=== PATIENT | male | born 1975 | race Caucasian/White ===

== ENCOUNTER 2017-08-04 16:54 | Emergency (ER) | payer OTHER, SELFPAY ==
[2017-08-04 16:56] VITALS: BP 150/99; PULSE 119; RESP 18; TEMP 36.7; O2SAT 100; BMI 29.9
--- NOTE | 2017-08-04 17:02 | EKG12_ITS ---
Test Reason : Blood Pressure : / mmHG Vent. Rate : 111 BPM Atrial Rate : 111 BPM P-R Int : 154 ms QRS Dur : 106 ms QT Int : 342 ms P-R-T Axes : 061 061 047 degrees QTc Int : 465 ms Sinus tachycardia Otherwise normal ECG Confirmed by SHON MCDANIELS ([id number]), editor sound JANAE ROSENTHAL ([id number]) on 08/08/2017 1:51:50 PM Referred By: Confirmed By:SHON MCDANIELS
[2017-08-04 17:38] VITALS: BP 152/89; PULSE 64; RESP 16; O2SAT 100
[2017-08-04 17:53] LABS: Absolute Lymphocyte Count 1.63 X10^3/ul (0.83-4.51); Basophil# 0.02 X10^3/uL; Basophil% 0.3 % (0-1); Eosinophil# 0.02 X10^3/uL; Eosinophils% 0.3 % (0-5); Hematocrit 45.3 % (40-54); Lymphocyte # 1.63 X10^3/ul (4.0); Lymphocyte % 23.2 % (19-41); Mean Corp Hgb Conc 35.3 g/gl (32-36); Mean Corpuscular Hgb 29.2 pg (27.0-32.0); Mean Corpuscular Volume 82.7 fL (80-94); Mean Platelet Vol. 10.2 fl (6.2-12.0); Monocyte# 0.42 X10^3/uL; Neutrophil # 4.95 X10^3/uL (2.7-7.7); Neutrophil % 70.2 % (47-70); POSITIVE COUNT NO; POSITIVE DIFFERENTIAL NO; POSITIVE MORPHOLOGY NO; Platelet Count 230 K/mm3 (150-450); RBC Distribution Width CV 12.8 % (11.6-14.6); RBC Distribution Width SD 38.3 fl (35.1-43.9); Red Blood Count 5.48 M/mm3 (4.6-6.2)
[2017-08-04 18:20] LABS: Anion Gap 6 (5-15); BUN 11 mg/dL (7-18); BUN/Creat Ratio 10.4 RATIO (10-20); Calcium,Total 9.3 mg/dL (8.5-10.1); Chloride 108 mmol/L (98-107); Creatinine, Serum 1.06 mg/dL (0.70-1.30); EST Glomerular Filtration Rate 81 mL/min (>60); Est Glom Filt Rate - Afr Amer 98 mL/min (>60); Glucose 109 mg/dL (74-106); Potassium 3.6 mmol/L (3.5-5.1); Sodium Level 141 mmol/L (136-145)
--- NOTE | 2017-08-04 18:30 | ED.VISSUMM ---
- ER Visit Summary Date of Service: 08/04/17 Chief Complaint: Anxiety History of Present Illness: The patient is a 41 M with anxiety. He has history of panic episodes. He takes Klonopin 0.5 mg, but he breaks into 4 pieces and takes a small amount at a time. He took less than 1 mg today. He has also done the same with Benadryl tablets today. They do not help. His symptoms are associated with some palpitations, heart racing, near syncope, and nausea. He denies any heart history, respiratory disease, PE, or any other serious medical issues. Physical Examination: Vital signs unremarkable. He had some tachycardia on arrival. But this resolved. Heart regular. Lungs clear. Abdomen soft. No focal or lateralizing neurologic findings. No suicidal thoughts. Test Results: EKG, troponin, labs, TSH unremarkable. Emergency Department Course and Treatment: Patient declined any medical therapy. He said that as pains make his symptoms worse. He also said hydroxyzine makes his symptoms worse. He will likely benefit from long-term SSRI treatment. He should also speak with a counselor. I will refer him to a counselor. He should also follow-up with his PCP for outpatient medical management. Return for any new or worsening symptoms. Treatment Plan: As above Disposition: Discharged Impression: 1. Anxiety 2. Palpitations This note was generated with [facility] dictation software. It may contain incorrect words, spelling, and punctuation that were not noted in review of the chart prior to signing ED Disposition - Plan for ED Patient: Chief Complaint: Chest Pain Referrals: Reginald Zimmerman III, MD [Primary Care Provider] -
--- NOTE | 2017-08-04 18:33 | ED.DEP ---
ED Disposition - Plan for ED Patient: Chief Complaint: Chest Pain Instructions: Understanding Anxiety Disorders Referrals: Reginald Zimmerman III, MD [Primary Care Provider] - [facility] [GROUP OF PHYSICIANS] -
--- NOTE | 2017-08-04 18:35 | DCINST.ED_ITS ---
ED Disposition - Plan for ED Patient: Chief Complaint: Chest Pain Instructions: Understanding Anxiety Disorders Referrals: Reginald Zimmerman III, MD [Primary Care Provider] - [facility] [GROUP OF PHYSICIANS] -
[2017-08-04 18:49] VITALS: BP 132/87; PULSE 98; RESP 16; O2SAT 100
== END 2017-08-04 18:50 | disposition home or self-care (01) ==
LOC: ED 17:38
PROVIDERS: Emergency Provider Emergency Medicine; Family Provider Family Medicine; PCP Family Medicine
DX: F41.9 Anxiety disorder, unspecified (principal); R00.2 Palpitations; Z79.899 Other long term (current) drug therapy
CPT/HCPCS: 80048; 84443; 84484; 85025; 93005; 99283; A4216

== ENCOUNTER 2017-10-20 10:23 | Emergency (ER) | payer OTHER, SELFPAY ==
[2017-10-20 10:25] VITALS: BP 122/92; PULSE 114; RESP 20; TEMP 35.5; O2SAT 100; BMI 30.5
--- NOTE | 2017-10-20 10:38 | EKG12_ITS ---
Test Reason : PALPITATIONS Blood Pressure : / mmHG Vent. Rate : 087 BPM Atrial Rate : 087 BPM P-R Int : 156 ms QRS Dur : 112 ms QT Int : 362 ms P-R-T Axes : 052 047 036 degrees QTc Int : 435 ms Normal sinus rhythm with sinus arrhythmia Normal ECG Confirmed by TIFFANY PIMENTEL, JENNY ([id number]), editorial director JANAE ROSENTHAL ([id number]) on 10/26/2017 1:33:54 PM Referred By: RU Confirmed By:JENNY ALLEN MD
[2017-10-20 11:01] LABS: Absolute Lymphocyte Count 1.42 X10^3/ul (0.83-4.51); Absolute Neutrophil Count 2.7 X10^3/uL (2.0-7.7); Basophil# 0.03 X10^3/uL; Basophil% 0.7 % (0-1); Eosinophil# 0.06 X10^3/uL; Eosinophils% 1.3 % (0-5); Hematocrit 44.9 % (40-54); Hemoglobin 15.6 g/dl (13.0-16.5); Lymphocyte # 1.42 X10^3/ul (4.0); Lymphocyte % 31.1 % (19-41); Mean Corp Hgb Conc 34.7 g/gl (32-36); Mean Corpuscular Hgb 28.7 pg (27.0-32.0); Mean Corpuscular Volume 82.5 fL (80-94); Mean Platelet Vol. 9.9 fl (6.2-12.0); Monocyte# 0.33 X10^3/uL; Monocyte% 7.2 % (0-10); Neutrophil # 2.73 X10^3/uL (2.7-7.7); Neutrophil % 59.7 % (47-70); Platelet Count 200 K/mm3 (150-450); RBC Distribution Width CV 13.1 % (11.6-14.6); RBC Distribution Width SD 39.3 fl (35.1-43.9); Red Blood Count 5.44 M/mm3 (4.6-6.2); White Blood Count 4.6 K/mm3 (4.4-11.0)
[2017-10-20 11:03] LABS: POSITIVE COUNT NO; POSITIVE DIFFERENTIAL NO; POSITIVE MORPHOLOGY NO
[2017-10-20 11:19] LABS: Anion Gap 5 (5-15); BUN 12 mg/dL (7-18); BUN/Creat Ratio 10.2 RATIO (10-20); Calcium,Total 9.3 mg/dL (8.5-10.1); Chloride 103 mmol/L (98-107); Creatinine, Serum 1.18 mg/dL (0.70-1.30); EST Glomerular Filtration Rate 71 mL/min (>60); Est Glom Filt Rate - Afr Amer 86 mL/min (>60); Estimated Creatinine Clearance 96.47 ml/min; Glucose 112 mg/dL (74-106); Potassium 3.9 mmol/L (3.5-5.1); Sodium Level 136 mmol/L (136-145)
--- NOTE | 2017-10-20 11:40 | ED.DCSUM_ITS ---
- ER Visit Summary Date of Service: 10/20/17 Chief Complaint: [Cardia] History of Present Illness: The patient is a 41 M [presents the emergency department with racing heart that started today while on the job site. 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 Patient states he has had this happen multiple times in the past. Patient does have a history of anxiety and panic attacks. Patient supposed to be on a medicine that he supposed to take 3 times a day but has not been taken it. Patient states that he lost a friend in March and it is felt that he has been varying his feelings about it. Patient currently denies any chest pain. Patient very aware of every heartbeat and feels like at times his heart will actually pause. Patient also was concerned that maybe he was dehydrated. Patient denies any chest pain currently.] Physical Examination: [HEENT-PERRLA, EOMI. Cranial nerves II through XII grossly intact. TMs clear. Mucous membranes moist. No adenopathy. Cardiovascular-regular rate and rhythm without murmur or ectopy Lungs-clear to auscultation, chest wall stable without crepitus or subcu emphysema Abdomen-normoactive bowel sounds, soft, nontender, no rebound or rigidity, no peritoneal signs. Extremities-intact ?4, normal range of motion, normal pulses, atraumatic] Test Results: [EKG obtained on arrival showed sinus rhythm with a ventricular rate of 87 bpm with occasional PACs. CBC with differential was normal. Chemistries were normal troponin was normal.] Emergency Department Course and Treatment: [Patient received normal saline while in the emergency department. I was called the patient's room again and patient is asking to be discharged home and states that he knows what happened and he believes that it was his anxiety that was the cause of his symptoms. I am in agreement with this as I have seen patient multiple times in the past for severe anxiety.] Treatment Plan: [Patient to follow-up with primary care physician within next 3- 5 days.] Disposition: [Discharged home in stable condition] Impression: [Anxiety Tachycardia by history] This note was generated with [employer] software. It may contain incorrect words, spelling, and punctuation that were not noted in review of the chart prior to signing ED Disposition - Plan for ED Patient: Chief Complaint: Palpitations Referrals: Reginald Zimmerman III, MD [Primary Care Provider] -
--- NOTE | 2017-10-20 11:41 | ED.DEP ---
ED Disposition - Plan for ED Patient: Chief Complaint: Palpitations Instructions: ED Palpitations, ED Stress React Referrals: Reginald Zimmerman III, MD [Primary Care Provider] - 3-5 Days
[2017-10-20 11:48] VITALS: BP 118/85; BP 122/70; PULSE 90; RESP 14; O2SAT 99
--- NOTE | 2017-10-20 11:53 | NURSING ---
PATIENT REFUSED IV FLUIDS AND ANY FURTHER TREATMENT, MD AWARE.
--- NOTE | 2017-10-20 14:06 | CHAPLAIN ---
Type of Pastoral Visit ___ Initial Visit ___ Follow-up Visit ___ On-call Visit ___ General Patient Visit ___ Spiritual Assessment ___ Family Conference ___ Bereavement ___ Rapid Response ___ Code Blue _x__ Other (describe below) Pastoral Care Referral From _x__ Patient ___ Family ___ Nurse ___ Physician ___ Aerial Photogrammetrist ___ Director Of Coding ___ Other (describe below) Sacrament/Intervention _x__ Active listening ___ Anointing ___ Nondenominational ___ Bereavement ___ Communion ___ Kimberli exploration ___ ___ Life review _x__ Prayer ___ Reconciliation ___ Sacrament of Sick _x__ Supportive presence ___ Wedding ___ Other (describe below) Pastoral Comments ED - patient is pacing in his room; stopped to talk and offer support; pt spoke of his anxiety and welcomed the presence and prayer offered
== END 2017-10-20 11:54 | disposition home or self-care (01) ==
LOC: ED 11:31
PROVIDERS: Emergency Provider Emergency Medicine; Family Provider Family Medicine; PCP Family Medicine
DX: F41.9 Anxiety disorder, unspecified (principal); R00.0 Tachycardia, unspecified; Z91.14 Patient's other noncompliance with medication regimen
CPT/HCPCS: 80048; 84484; 85025; 93005; 99284; J7030; A4216

== ENCOUNTER 2017-11-04 15:05 | Emergency (ER) | payer OTHER, SELFPAY ==
--- NOTE | 2017-11-04 14:14 | EKG12_ITS ---
Test Reason : CP PALPS Blood Pressure : / mmHG Vent. Rate : 102 BPM Atrial Rate : 102 BPM P-R Int : 144 ms QRS Dur : 104 ms QT Int : 330 ms P-R-T Axes : 061 068 048 degrees QTc Int : 430 ms Sinus tachycardia Otherwise normal ECG Confirmed by ALONDRA PIMENTEL, KRUPA ([id number]), newspaper editor managing JANAE ROSENTHAL ([id number]) on 11/09/2017 5:54:58 PM Referred By: LUPE/JUAN Confirmed By:KRUPA CANTU MD
--- NOTE | 2017-11-04 15:05 | DT_ITS ---
This patient was seen during an EMR downtime October 31, 2017 - November 07, 2017. This patient may have a combination of paper and electronic documentation or all paper documentation. All documentation is viewable within the e-chart portion of [employer] for each patient visit.
[2017-11-09 13:46] LABS: BUN 12 mg/dL (7-18); BUN/Creat Ratio 11.4 RATIO (10-20); Creatinine, Serum 1.05 mg/dL (0.70-1.30); EST Glomerular Filtration Rate 82 mL/min (>60); Est Glom Filt Rate - Afr Amer 99 mL/min (>60); Glucose 104 mg/dL (74-106)
[2017-11-09 13:47] LABS: ALB/GLOB Ratio 1.3 RATIO (0.9-2.4); AST(SGOT) 20 U/L (15-37); Alanine Aminotransfer ALT/SGPT 41 U/L (16-61); Albumin, Serum 4.2 g/dL (3.2-5.0); Alkaline Phosphatase 60 U/L (45-117); Anion Gap 8 (5-15); Calcium,Total 9.2 mg/dL (8.5-10.1); Chloride 105 mmol/L (98-107); Globulin 3.3 g/dL (2.2-4.2); Magnesium 2.1 mg/dL (1.6-2.6); Potassium 3.7 mmol/L (3.5-5.1); Protein, Total 7.5 g/dL (6.4-8.2); Sodium Level 141 mmol/L (136-145); Thyroid Stim Hormone (TSH) 0.66 uIU/mL (0.358-3.74)
[2017-11-09 13:48] LABS: Partial Thromboplast Time 28.2 Seconds (24.1-36.2); Prothrombin Time (Protime)PT. 13.6 SECONDS (11.7-14.9)
[2017-11-09 13:50] LABS: Absolute Neutrophil Count 4.2 X10^3/uL (2.0-7.7); Basophil% 0.4 % (0-1); Eosinophils% 0.4 % (0-5); Hematocrit 45.5 % (40-54); Hemoglobin 15.9 g/dl (13.0-16.5); Lymphocyte # 1.16 X10^3/ul (4.0); Lymphocyte % 20.7 % (19-41); Mean Corp Hgb Conc 34.9 g/gl (32-36); Mean Corpuscular Hgb 28.9 pg (27.0-32.0); Mean Corpuscular Volume 82.6 fL (80-94); Mean Platelet Vol. 10.3 fl (6.2-12.0); Monocyte% 4.1 % (0-10); Neutrophil # 4.18 X10^3/uL (2.7-7.7); Neutrophil % 74.4 % (47-70); POSITIVE COUNT NO; POSITIVE DIFFERENTIAL NO; POSITIVE MORPHOLOGY NO; Platelet Count 224 K/mm3 (150-450); RBC Distribution Width CV 12.9 % (11.6-14.6); RBC Distribution Width SD 39.1 fl (35.1-43.9); Red Blood Count 5.51 M/mm3 (4.6-6.2); White Blood Count 5.6 K/mm3 (4.4-11.0)
[2017-11-09 13:51] LABS: Absolute Lymphocyte Count 1.16 X10^3/ul (0.83-4.51); Basophil# 0.02 X10^3/uL; Eosinophil# 0.02 X10^3/uL; Monocyte# 0.23 X10^3/uL
--- NOTE | 2017-11-25 08:29 | ED.DCSUM_ITS ---
- ER Visit Summary Date of Service: 11/04/17 Chief Complaint: Chest pain History of Present Illness: The patient is a 41 M who states that he got a phone call stating that he was having PVCs and needed to go to the emergency department. He has been wearing a Holter monitor. States she has never had a heart catheterization but he has had echocardiograms and stress testing. He notes he has been having chest pain dyspnea on exertion for years. He has been seeing Dr. Gracia. He states that he has gained about 15-20 pounds in the last 6 months. States he was told his cholesterol is high but has not been treated for it. He has not had any marijuana for 3 months he quit smoking. I did speak with Dr. Gracia about his care. Dr. Gracia informed me he had an episode of nonsustained ventricular tachycardia on his Holter monitor. Physical Examination: Afebrile vital signs are stable Gen: Well-nourished well-developed Head: Normocephalic atraumatic Eyes: Perrl EOMI ENT: TMs clear no rhinorrhea moist mucous membranes Neck: Supple no lymphadenopathy no JVD nontender CVS: Regular rate rhythm no murmurs normal S1-S2 Respiratory: No distress clear to auscultation bilaterally chest nontender Abdomen: Soft nontender nondistended normal bowel sounds no masses Back: Nontender Extremity: Nontender no edema Skin: Normal color no rash Neuro: alert orientated ?3 CN II-XII intact normal strength sensation reflexes gait cerebellar Psych: Anxious Test Results: EKG sinus rhythm at a rate of 102. Chest x-ray negative. CBC chemistries negative. Troponin less than 0.015. TSH 0.657. Emergency Department Course and Treatment: I spoke with Dr. Hill will follow up with the patient as an outpatient. Impression: 1. Chest pain 2. Nonsustained ventricular tachycardia This note was generated with [employer] dictation software. It may contain incorrect words, spelling, and punctuation that were not noted in review of the chart prior to signing ED Disposition - Plan for ED Patient: Disposition: Home or Assisted Living Referrals: Reginald Zimmerman III, MD [Primary Care Provider] -
== END 2017-11-04 18:30 | disposition home or self-care (01) ==
PROVIDERS: Emergency Provider Emergency Medicine; Family Provider Family Medicine; PCP Family Medicine
DX: R07.9 Chest pain, unspecified (principal); I47.2 Ventricular tachycardia; Z87.891 Personal history of nicotine dependence
CPT/HCPCS: 71045; 80053; 83735; 84443; 84484; 85025; 85610; 85730; 93005; 99284

== ENCOUNTER → 2017-11-08 11:58 | Outpatient (CLI) | payer OTHER, SELFPAY ==
--- NOTE | 2017-11-08 12:02 | RAD_ITS ---
STUDY: X-RAY CHEST REASON FOR EXAM: Male, 41 years old. ongoing chest pain having heart cath 11-11-17 TECHNIQUE: PA and lateral views of the chest. COMPARISON: November 14, 2017 FINDINGS: The lungs are clear and again hyperexpanded. There is no demonstrated pleural abnormality. Normal size heart. Normal mediastinum and marvel. Normal visualized pulmonary arteries. Normal visualized aortic arch and descending thoracic aorta. Normal visualized thoracic spine. Normal visualized ribs, clavicles, and shoulders. There is no demonstrated abnormality of the visualized soft tissue structures of the upper abdomen. RAD/Chest PA and Lateral IMPRESSION: No acute disease is demonstrated. Electronically Signed: Yas Wilkins MD at 13:06 EDT , Service support ,
== END ==
LOC: RAD 12:00
PROVIDERS: Family Provider Family Medicine; PCP Family Medicine; Visit Provider Internal Medicine Cardiovascular Disease
DX: Z01.810 Encounter for preprocedural cardiovascular examination (principal); R07.9 Chest pain, unspecified
CPT/HCPCS: 71046

== ENCOUNTER → 2017-11-11 06:54 | Day surgery (SDC) | payer OTHER, SELFPAY ==
[2017-11-10 08:29] VITALS: BMI 30.9
--- NOTE | 2017-11-11 09:41 | CL.D_ITS ---
Patient Name: JANI ABDALLA Study Date: 11/11/2017 Performing: Saman Hill MD Ht: 74.01 inches 188 cm : 1975 Wt: 240.3 lbs 109 kg Age: 41 Gender: male BSA: 2.35 PROCEDURE(S) PERFORMED FG10-RLY/COR/LV CLINICAL PROFILE AND INDICATIONS Indications: Suspected CAD Heart Failure: None Stress/Imaging Stress/Image Study Performed: No CAD Presentations: Symptom unlikely to be ischemic. CONCLUSIONS Normal coronary arteries Normal LV size, wall motion,and systolic function RECOMMENDATIONS Medical therapy DESCRIPTION OF PROCEDURE The patient arrived to the procedure lab. The risks and benefits of the procedure as well as a full d escription of our services here and current unavailability of surgical backup were fully explained to the patient and/or their significant other prior to the catheterization. The Timeout was completed, verifying the correct patient and procedure. The patient's procedural site was prepped and draped in the usual fashion. Local anesthetic was given subcutaneously to right radial region with Lidocaine 2% . Using a modified Seldinger technique, arterial access was obtained via the right radial artery, a 6 Fr sheath was inserted. Right Coronary Artery selective angiography was then performed in multiple v iews using a 5 Fr. 4.0 Fairdealing catheter. Left Coronary Artery selective angiography was performed in mu ltiple views using a 5 Fr. 4.0 Fairdealing catheter. Left Coronary Artery selective angiography was perform ed in multiple views using a 5 Fr. JL3.5 catheter. Left Ventriculography was performed in JIMENEZ project ion using a 5 Fr. Pigtail catheter. LV to AO pullback pressures were then recorded.The arterial sheat h was pulled and a TR Band was applied for hemostasis CORONARY ANGIOGRAPHY DOMINANCE: Right Dominant LEFT HEART ASSESSMENT Left Ventricular Ejection Fraction: by LV Gram 65 % Normal LV wall motion Normal Left Ventricular systolic function LEFT MAIN: Angiographically normal LEFT ANTERIOR DECENDING ARTERY: Angiographically normal CIRCUMFLEX ARTERY: Angiographically normal RIGHT CORONARY ARTERY: Angiographically normal COMPLICATIONS No Complications PROCEDURE MEDICATIONS Oxygen: 2 L/min via nasal cannula Benadryl 25mg IV @ 11/11/2017 08:08:21 Heparin diluted in 23cc Heparinized saline. Patient given 10cc IA of this solution. 11/11/2017 08:15: 12 Verapamil 2.5mg, Ntg 100mcgs, 2000 units of Heparin diluted in 23cc Heparinized saline. Patient give n 10cc IA of this solution. 11/11/2017 08:15:12 SUMMARY OF HEMODYNAMIC DATA Time AIR REST ECG 07:28:15 AO 120/86 (97) SA 08:16:37 LV 125/7, 14 08:29:27 LV 135/8, 16 08:29:33 LV 138/9, 21 08:31:06 LVp 129/7, 17 08:31:14 AOp 133/84 (105) 08:31:19 Signed By Saman Hill MD On 11/11/2017 08:38:47 Saman Hill MD
== END ==
PROVIDERS: Family Provider Family Medicine; PCP Family Medicine; Visit Provider Internal Medicine Cardiovascular Disease
DX: R07.9 Chest pain, unspecified (principal); R00.2 Palpitations; I10 Essential (primary) hypertension; E78.5 Hyperlipidemia, unspecified; F41.9 Anxiety disorder, unspecified; F32.9 Major depressive disorder, single episode, unspecified; E55.9 Vitamin D deficiency, unspecified; Z79.82 Long term (current) use of aspirin; Z79.891 Long term (current) use of opiate analgesic; Z79.899 Other long term (current) drug therapy; Z87.891 Personal history of nicotine dependence
CPT/HCPCS: 93458; J7040; Q9967; C1769; C1894; J2405

== ENCOUNTER → 2018-06-28 15:06 | Outpatient (CLI) | payer OTHER, SELFPAY ==
[2017-11-10 08:29] VITALS: BMI 30.9
--- NOTE | 2018-06-28 15:13 | RAD_ITS ---
STUDY: X-RAY - CERVICAL SPINE REASON FOR EXAM: Male, 42 years old. Pain. TECHNIQUE: 3 view(s) of the cervical spine were obtained. COMPARISON: None FINDINGS: Normal anterior atlantoaxial articulation. Normal odontoid process. Normal cervical lordosis. Normal vertebral bodies and endplates. Normal disc space heights. The soft tissue structures are unremarkable. There is no demonstrated fracture of the cervical spine. RAD/Cerv Spine 2 or 3 Views IMPRESSION: Normal x-ray examination of the visualized cervical spine. Electronically Signed: Wil Diaz MD at 0:00 EST , Service support ,
== END ==
LOC: RAD 15:10
PROVIDERS: Family Provider Family Medicine; PCP Family Medicine; Referring Provider Anesthesiology Pain Medicine; Visit Provider Anesthesiology Pain Medicine
DX: M54.2 Cervicalgia (principal)
CPT/HCPCS: 72040

== ENCOUNTER → 2018-07-03 12:18 | Outpatient (CLI) | payer OTHER, SELFPAY ==
--- NOTE | 2018-07-03 12:24 | RAD_ITS ---
HISTORY: ARTHARITIS IN BACK FOR 20 YEARS. BACK PAIN COMPARISON: 2 view chest 11/08/2017 FINDINGS: XR Spine Thoracic 3 Views: Thoracic vertebra show normal height and alignment. No fracture or suspicious bony lesion. T6-7 mild disc space narrowing accompanied by mild endplate spurring. T7-8 Minor disc space narrowing. The posterior elements appear intact. No spondylolisthesis. The paravertebral soft tissues are unremarkable. RAD/Thoracic Spine Min 4 Views IMPRESSION: 1. No fracture or acute disease. 2. Mild degenerative change. 3. Normal thoracic vertebral alignment. at 0033 Reported and signed by: Prosper Mehta MD Electronically Signed: Prosper Mehta, at 0:32 EST Tel , Service support ,
== END ==
LOC: RAD 12:22
PROVIDERS: Family Provider Family Medicine; PCP Family Medicine; Referring Provider Anesthesiology Pain Medicine; Visit Provider Anesthesiology Pain Medicine
DX: M54.6 Pain in thoracic spine (principal)
CPT/HCPCS: 72074

== ENCOUNTER → 2018-07-12 12:25 | Outpatient (CLI) | payer OTHER, SELFPAY ==
--- NOTE | 2018-07-12 12:36 | MRI_ITS ---
HISTORY: NECK AND ARM PAIN, BACK PAINno neck pain, chronic pain upper to mid thoracic into bilat shoulders, numbness left arm/hand EXAM/TECHNIQUE: MR Spine Cervical W/O Contrast: 1.5 Ellyn. Multiplanar, multisequence. COMPARISON: 06/28/18 radiographs. FINDINGS: # of images incl. paperwork: 257 At C6-7, a small right paracentral disc extrusion with mild cephalad migration causes only mild narrowing of the right anterior aspect of the spinal canal, mildly displacing but not compressing the traversing right C7 nerve root. No significant foraminal narrowing. Mild degenerative changes at other levels but with no other significant spinal canal or foraminal narrowing. No fracture or acute osseous abnormality, alignment anatomic. Normal signal and counselor of the cervical spinal cord. Paraspinal soft tissues unremarkable. MRI/Spine Cervical (Routine) IMPRESSION: At C6-7, a small right paracentral disc extrusion with mild cephalad migration causes only mild narrowing of the right anterior aspect of the spinal canal, mildly displacing but not compressing the traversing right C7 nerve root. No etiology for left radiculopathy identified. at 1552 Reported and signed by: Chaz Schrader MD Electronically Signed: Chaz Schrader, at 15:50 EST Tel , Service support ,
== END ==
PROVIDERS: Family Provider Family Medicine; PCP Family Medicine; Referring Provider Anesthesiology Pain Medicine; Visit Provider Anesthesiology Pain Medicine
DX: M54.2 Cervicalgia (principal); M79.603 Pain in arm, unspecified
CPT/HCPCS: 72141

== ENCOUNTER 2020-11-06 10:18 | Emergency (ER) | payer OTHER, SELFPAY ==
[2020-11-06 10:19] VITALS: BP 130/82; PULSE 87; RESP 18; TEMP 36.6; O2SAT 100; BMI 32.5
[2020-11-06 10:49] VITALS: BP 130/82; PULSE 87; RESP 18; TEMP 36.6; O2SAT 100
--- NOTE | 2020-11-06 10:49 | CT_ITS ---
STUDY: CT ABDOMEN AND PELVIS WITH CONTRAST REASON FOR EXAM: Male, 44 years old. Bilateral flank pain RADIATION DOSAGE (If Supplied By Facility): CTDIvol = ( 15.28 ) mGy, DLP = ( 1091.12 ) mGycm TECHNIQUE: Transaxial images were obtained from the dome of the diaphragm to the symphysis pubis without oral contrast. IV 100mL Isovue-370 was administered. Sagittal and coronal images were reconstructed. Individualized dose optimization techniques were used for this CT. COMPARISON: None. FINDINGS: The visualized lung bases are unremarkable. The visualized portions of the heart are within normal limits. Normal liver. Normal gallbladder and extrahepatic biliary system. There is a benign calcified granuloma of the spleen. Normal pancreas. Normal bilateral adrenal glands. Normal right kidney. Normal left kidney. There is a small hiatal hernia. Normal small intestine. Normal colon. The appendix is visualized and appears normal. Normal abdominal aorta. Normal inferior vena cava. Normal retroperitoneum. Distended urinary bladder. There are prostatic calcifications. Normal abdominal wall. There are mild degenerative changes of the visualized lumbar spine. CT/Abdomen/Pelvis W IV Cont ONLY IMPRESSION: No acute abnormality is seen. Electronically Signed: Aki Richard MD at 11:56 EDT , Service support ,
--- NOTE | 2020-11-06 10:49 | EKG12_ITS ---
Test Reason : FLANK PAIN Blood Pressure : / mmHG Vent. Rate : 080 BPM Atrial Rate : 080 BPM P-R Int : 158 ms QRS Dur : 116 ms QT Int : 386 ms P-R-T Axes : 043 032 029 degrees QTc Int : 445 ms Normal sinus rhythm with sinus arrhythmia Incomplete right bundle branch block Borderline ECG Confirmed by ALONDRA PIMENTEL, KRUPA ([id number]), state editor VANE JUNG ([id number]) on 11/10/2020 1:49:37 PM Referred By: YAN Confirmed By:KRUPA CANTU MD
--- NOTE | 2020-11-06 10:54 | EDS_ITS ---
HPI History of Present Illness Chief Complaint: Flank Pain Informant: patient Narrative Narrative: Patient is a 44-year-old male with history of anxiety and kidney stones presenting with bilateral flank pain. Patient states it started on Tuesday, 4 days ago. He states it is equal on both sides. Is worse if he takes a deep breath or yawns or burps. He notes he feels dehydrated. He has been urinating as much and had a strange odor to his urine yesterday. He is clean of associated headache. Patient denies any radiation of the pain. He denies any associated testicular or leg pain. He states he had a hard time getting comfortable and has been taking Flexeril, ibuprofen and a half of an old Percocet at home. He states sometimes the pain will go away for a little bit but then it comes back. He denies any new physical activity or injury. States has been having hard time sleeping associate with the pain. He denies any nausea, vomiting or change in bowel habits but notes his stomach has been upset. He denies associated chest pain, shortness of breath or difficulty breathing. Denies any swelling of his legs. Denies any history of DVT or PE. He does not take any medications on a daily basis. [facility] Medical History Herniated disc Home Medications aspirin 81 mg PO DAILY@0800 11/10/17 [History Last Taken Unknown] cyclobenzaprine 10 mg PO TID PRN PRN 11/10/17 [History Last Taken Unknown] ibuprofen 600 mg PO Q6H PRN PRN #20 tab 11/06/20 [Rx Last Taken Unknown] Allergy/AdvReac Type Severity Reaction Status Date / Time Benzodiazepines AdvReac Chest Verified 11/06/20 10:20 tightness Surgical History History of right knee surgery Social History Smoking Status: Former smoker ROS ROS ED Constitutional Constitutional ED: Reports malaise; Denies chills or fever(s) Eyes Eyes: Denies blurry vision or loss of vision ENT ENT ED: Denies rhinorrhea or sore throat Cardiovascular Cardiovascular: Denies chest pain or dizziness Respiratory/Chest Respiratory/Chest: Denies cough, dyspnea or dyspnea on exertion Gastrointestinal Gastrointestinal: Reports nausea; Denies abdominal pain, constipation, diarrhea, melena or vomiting Genitourinary Genitourinary ED: Denies dysuria or hematuria Musculoskeletal Musculoskeletal: Reports back pain; Denies arthralgias or myalgias Integumentary Denies rash or wounds Neurologic Neurologic: Denies focal weakness, headache(s) or weakness Psychiatric Psychiatric: Denies anxiety or behavioral changes EXAM Physical Exam Const Vital Signs: 11/06/20 10:19 11/06/20 10:49 11/06/20 12:52 Temperature 97.9 F 97.9 F Temperature Source Temporal Temporal Pulse Rate 87 87 62 Respiratory Rate 18 18 18 Blood Pressure 130/82 H 130/82 H 112/79 Blood Pressure Mean 98 98 Pulse Ox 100 100 100 Oxygen Delivery Method Room Air Room Air Positive well nourished, well developed and no apparent distress General Appearance ED: well developed HEENT Reports normocephalic atraumatic Nose: no nasal discharge General Ear: hearing grossly impaired External Ear: external ears normal Mouth ED: Yes moist mucous membranes abnormal Mouth: moist mucous membranes abnormal Eyes PERRL and EOMs intact bilaterally Neck full ROM and no meningeal signs Chest Wall inspection of chest normal Resp normal respiratory effort, normal air movement and clear to auscultation bilaterally Cardio regular rate and regular rhythm GI normal to inspection, nondistended, normoactive bowel sounds and no masses Back/Spine no CVA tenderness Thoracic Spine / Upper Back: Negative for thoracic spinal tenderness or paraspinal muscle tenderness Lumbar Spine / Lower Back: Negative for lumbar spinal tenderness Extremity normal to inspection and full ROM Neuro oriented x3 and no focal motor deficits Psych mental status grossly normal and thought process normal Skin no rashes or lesions noted and no wounds MDM MDM MDM Narrative Medical decision making narrative: Patient evaluated for bilateral flank pain. Is been present for the past few days. Is been constant. He does have history of kidney stones. He denies any associated injury or trauma. Is not reproducible on exam. He has equal distal pulses. No pulsatile masses abdomen appreciated. His vital signs are normal. Patient declines any medication in the ER except IV fluids. Work-up is largely negative. His CBC is normal. His BMP is normal. His troponin is normal. He also has a normal urinalysis and CMP. CT the abdomen pelvis obtained does not show any acute process. Do not know exactly the cause of his pain I suspect is likely muscle skeletal. I do not think this is a PE and patient is PERC negative. Cardiac work-up is normal including troponin and EKG. Patient is given a prescription for Motrin 600 mg. He is referred to PCP as he used to see Dr. Reginald Zimmerman who has since retired per the patient. Patient is counseled on signs and symptoms requiring return to the emergency room. Patient verbalizes agreement and understand this plan. Patient discharged home in stable and improved condition. Lab Data Attestation: I reviewed the patient's lab results. Labs: Laboratory Results - last 24 hr 11/06/20 11/06/20 11/06/20 10:50 10:50 11:02 WBC 6.4 RBC 5.59 Hgb 15.9 Hct 46.2 MCV 82.6 MCH 28.4 MCHC 34.4 RDW Std Deviation 39.1 RDW Coeff of [place] 13.2 Plt Count 254 MPV 10.4 Immature Gran % (Auto) 0.200 Neut % (Auto) 60.7 Lymph % (Auto) 29.3 [place] % (Auto) 7.3 Eos % (Auto) 1.7 Baso % (Auto) 0.8 Absolute Neuts (auto) 3.9 Absolute Lymphs (auto) 1.89 Nucleated RBC % 0 Sodium 140 Potassium 4.0 Chloride 106 Carbon Dioxide 29.0 Anion Gap 5 BUN 13 Creatinine 1.13 Estim Creat Clear Calc 97.63 Est GFR (MDRD) Af Amer 90 Est GFR (MDRD) Non-Af 74 BUN/Creatinine Ratio 11.5 Glucose 92 Calcium 9.4 Total Bilirubin 0.60 Direct Bilirubin 0.18 AST 19 ALT 53 Alkaline Phosphatase 69 Troponin I < 0.015 Total Protein 7.4 Albumin 3.8 Globulin 3.6 Lipase 101 Urine Color Straw Urine Clarity Clear Urine pH 8.0 Ur Specific [place] 1.010 Urine Protein Negative Urine Glucose (UA) Normal Urine Ketones Negative Urine Occult Blood Negative Urine Nitrite Negative Urine Bilirubin Negative Urine Urobilinogen Normal Ur Leukocyte Esterase Negative Urine RBC 0 SEEN Urine WBC 0 SEEN Ur Squamous Epith Cells 0 SEEN Urine Bacteria 0 SEEN Urine Mucus 0 SEEN Radiography Diagnostic Testing: Radiology Impression Abdomen/Pelvis CT 11/06/20 10:49 IMPRESSION: No acute abnormality is seen. Electronically Signed: Aki Richard MD at 11:56 EDT , Service support , Rhythm Strip Rhythm Strip: Sinus Rhythm Rate: 80 Ectopy: None EKG Initial EKG: Attestation: I personally reviewed and interpreted this EKG as follows: Interpretation: Sinus Rhythm Comments: Normal sinus rhythm at a rate of 80 Incomplete right bundle branch block Normal intervals Normal axis Normal ST segments Discharge Plan Triage Chief Complaint: Flank Pain ED Provider: Jennifer Churchill Dx/Rx/DC Orders Clinical Impression: Bilateral flank pain Instructions: ED Flank Pain, Uncertain Cause Prescriptions: New ibuprofen 600 mg tablet 600 mg PO Q6H PRN PRN (Reason: fever or pain) Qty: 20 RF: 0 No Action cyclobenzaprine 10 MG tablet 10 mg PO TID PRN PRN (Reason: Pain) RF: 0 aspirin 81 MG tablet,chewable 81 mg PO DAILY@0800 RF: 0 Primary Care Provider: Care Physician,No Primary Referrals: Ruperto Cottrell MD [NON-STAFF] - Care Physician,No Primary [Primary Care Provider] - Disposition Disposition: Home, self care Discharge Date/Time: 11/06/20 12:53
[2020-11-06] MEDS: 0.9% Normal Saline 1,000 ML 1000 ML IV (11:02)
[2020-11-06 11:11] LABS: Bacteria 0 SEEN /hpf (None Seen); Mucous, Urine 0 SEEN /hpf (<or=2+); Red Blood Cells-Urine 0 SEEN /hpf (0-5); Squamous Epithelial Cells - UA 0 SEEN /hpf (0-5); White Blood Cells 0 SEEN /hpf (0-5)
[2020-11-06 11:12] LABS: Absolute Lymphocyte Count 1.89 X10^3/uL (0.83-4.51); Absolute Neutrophil Count 3.9 X10^3/uL (2.0-7.7); Basophil# 0.05 X10^3/uL; Basophil% 0.8 % (0-1); Eosinophil# 0.11 X10^3/uL; Eosinophils% 1.7 % (0-5); Hematocrit 46.2 % (40-54); Hemoglobin 15.9 g/dL (13.0-16.5); Lymphocyte # 1.89 X10^3/ul (0.83-4.51); Lymphocyte % 29.3 % (19-41); Mean Corp Hgb Conc 34.4 g/dL (32-36); Mean Corpuscular Hgb 28.4 pg (27.0-32.0); Mean Corpuscular Volume 82.6 fL (80-94); Mean Platelet Vol. 10.4 fl (6.2-12.0); Monocyte# 0.47 X10^3/uL; Monocyte% 7.3 % (0-10); NRBC Flagged by Analyzer 0 % (0-5); Neutrophil # 3.91 X10^3/uL (2.7-7.7); Neutrophil % 60.7 % (47-70); Platelet Count 254 K/mm3 (150-450); RBC Distribution Width CV 13.2 % (11.6-14.6); RBC Distribution Width SD 39.1 fl (35.1-43.9); Red Blood Count 5.59 M/mm3 (4.6-6.2); White Blood Count 6.4 K/mm3 (4.4-11.0)
[2020-11-06 11:13] LABS: Color, Urine Straw (Yellow); Glucose, Dipstick Normal (Normal); Ketone-Dipstick Negative (Negative); Leukocyte Esterase-Dipstick Negative /ul (Negative); Nitrite-Dipstick Negative (Negative); Occult Blood-Urine Negative /ul (Negative); Protein-Dipstick Negative (Negative); Urine Bilirubin Dipstick Negative (Negative); Urine Clarity Clear (Clear); Urine Urobilinogen Normal (Normal)
[2020-11-06 11:19] LABS: AST(SGOT) 19 U/L (15-37); Alanine Aminotransfer ALT/SGPT 53 U/L (16-61); Albumin, Serum 3.8 g/dL (3.2-5.0); Alkaline Phosphatase 69 U/L (45-117); Anion Gap 5 (5-15); BUN 13 mg/dL (7-18); BUN/Creat Ratio 11.5 RATIO (10-20); Bilirubin, Direct 0.18 mg/dL (0.00-0.30); Calcium,Total 9.4 mg/dL (8.5-10.1); Chloride 106 mmol/L (98-107); Creatinine, Serum 1.13 mg/dL (0.70-1.30); EST Glomerular Filtration Rate 74 mL/min (>60); Est Glom Filt Rate - Afr Amer 90 mL/min (>60); Estimated Creatinine Clearance 97.63 ml/min; Globulin 3.6 g/dL (2.2-4.2); Glucose 92 mg/dL (74-106); Lipase 101 U/L (73-393); Protein, Total 7.4 g/dL (6.4-8.2); Sodium Level 140 mmol/L (136-145)
[2020-11-06 12:52] VITALS: BP 112/79; PULSE 62; RESP 18; O2SAT 100
== END 2020-11-06 12:53 | disposition home or self-care (01) ==
PROVIDERS: Emergency Provider Emergency Medicine
DX: R10.9 Unspecified abdominal pain (principal); F41.9 Anxiety disorder, unspecified; Z79.899 Other long term (current) drug therapy; Z87.891 Personal history of nicotine dependence
CPT/HCPCS: 74177; 80048; 80076; 81001; 83690; 84484; 85025; 93005; 96360; 99284; J7030; Q9967; A4216

== ENCOUNTER → 2020-11-26 17:13 | Outpatient (CLI) | payer OTHER, SELFPAY ==
[2020-11-06 10:19] VITALS: BMI 32.5
--- NOTE | 2020-11-26 17:20 | RAD_ITS ---
EXAM: XR THORACIC SPINE, 3 VIEWS : 1975 CLINICAL INDICATION: NECK PAIN TECHNIQUE: Frontal, lateral and swimmer's views of the thoracic spine. This report was created using [employer] technology. COMPARISON: None. FINDINGS: VERTEBRAE: Unremarkable. Preserved vertebral body height. No fracture. No spondylolisthesis. Preservation of the normal thoracic kyphosis. No significant facet arthropathy. DISC SPACES: Unremarkable. Disc spaces are maintained. RAD/Thoracic Spine 3 Views IMPRESSION: No evidence of thoracic spinal fracture or spondylolisthesis. at 0352 Reported and signed by: Cody Smith MD Electronically Signed: Cody Smith MD at 3:51 EDT Tel , Service support ,
== END ==
LOC: RAD 17:15
PROVIDERS: Visit Provider Anesthesiology Pain Medicine
DX: M54.2 Cervicalgia (principal)
CPT/HCPCS: 72072

== ENCOUNTER → 2022-07-12 | Outpatient (CLI) | payer OTHER, SELFPAY ==
--- NOTE | 2022-07-12 10:30 | RAD_ITS ---
HISTORY: OTHER INTERVERTEBRAL DISC DEGENERATION, LUMBOSACRAL REGION. TECHNIQUE: XR Spine Lumbar 2 or 3 Views. COMPARISON: MRI 03/18/2017. FINDINGS: VERTEBRAE: Vertebral body heights preserved. Posterior elements appear intact. ALIGNMENT: No significant anterior or posterior subluxation. INTERVERTEBRAL DISCS: Disc spaces maintained. SOFT TISSUES: Moderate stool in the colon. RAD/Lumbar Spine 2 or 3 Views IMPRESSION: No acute fracture or dislocation identified in the lumbar spine. Electronically Signed: Faith Piedra MD at 9:47 EST ,
== END | disposition home or self-care (01) ==
PROVIDERS: PCP Family Medicine; Visit Provider Anesthesiology Pain Medicine
DX: M51.37 Other intervertebral disc degeneration, lumbosacral region (principal)
CPT/HCPCS: 72100

== ENCOUNTER 2024-06-09 01:32 | Emergency (ER) | payer OTHER, SELFPAY ==
[2024-06-09 01:33] VITALS: BP 150/101; PULSE 66; RESP 18; TEMP 36.5; O2SAT 99; BMI 29.4
[2024-06-09 01:36] VITALS: BP 150/101; PULSE 66; RESP 12; TEMP 36.5; O2SAT 99
--- NOTE | 2024-06-09 01:41 | CT_ITS ---
INDICATION: Kidney Stone EXAMINATION: CT ABDOMEN AND PELVIS WITHOUT CONTRAST - CT Abdomen And Pelvis W/O Contrast Injection TECHNIQUE: Helically acquired images were obtained of the abdomen and pelvis without oral or IV contrast. A radiation dose optimization technique was used for this scan. IV Contrast dosage and agent: None. Oral contrast: None. RADIATION DOSAGE (If Supplied By Facility): CTDIvol = ( 9.12 ) mGy, DLP = ( 494.40 ) mGycm COMPARISON: Prior study dated: 11/06/2020 FINDINGS: LOWER CHEST: Lung bases are clear. No cardiomegaly or pericardial effusion. LIVER: The liver is normal in size, shape, and attenuation. No focal mass. GALLBLADDER AND BILIARY TREE: The gallbladder is normally distended. No gallstones. No gallbladder wall thickening or edema. No intra- or extrahepatic biliary ductal dilation. PANCREAS: No focal cystic or solid mass. SPLEEN: Normal size without focal cystic or solid mass. ADRENAL GLANDS: No nodules. KIDNEYS AND URETERS: Normal renal size and position. Mild right hydroureteronephrosis. 0.3 cm calculus at the right ureterovesicular junction. PERITONEUM: No ascites or free air. No other fluid collection. BOWEL: The stomach is unremarkable. Normal caliber small bowel. No obstruction. No colonic wall thickening or inflammatory changes. No evidence of acute appendicitis. LYMPH NODES: No enlarged mesenteric or retroperitoneal lymph nodes. VESSELS: Aorta is non-dilated. URINARY BLADDER: Unremarkable. REPRODUCTIVE ORGANS: No pelvic masses. ABDOMINAL WALL: No discrete abdominal or pelvic wall hernia. BONES: No acute or suspicious osseous abnormality. CT/Abdomen/Pelvis without Cont IMPRESSION: Mild right hydroureteronephrosis with a 0.3 cm calculus at the right ureterovesicular junction. Electronically Signed: Gus Garcia MD at 2:57 EST Reading Location ID and State: [facility] / [place] Tel , Service support ,
[2024-06-09 01:48] LABS: Absolute Lymphocyte Count 2.73 X10^3/uL (0.83-4.51); Basophil# 0.06 X10^3/uL; Basophil% 0.9 % (0-1); Eosinophil# 0.16 X10^3/uL; Eosinophils% 2.4 % (0-5); Hematocrit 44.3 % (40-54); Hemoglobin 15.6 g/dL (13.0-16.5); Lymphocyte # 2.73 X10^3/ul (0.83-4.51); Lymphocyte % 41.6 % (19-41); Mean Corp Hgb Conc 35.2 g/dL (32-36); Mean Corpuscular Volume 82.3 fL (80-94); Mean Platelet Vol. 10.1 fl (6.2-12.0); Monocyte# 0.62 X10^3/uL; Monocyte% 9.5 % (0-10); NRBC Flagged by Analyzer 0 % (0-5); Neutrophil # 2.97 X10^3/uL (2.7-7.7); Neutrophil % 45.3 % (47-70); Platelet Count 244 K/mm3 (150-450); RBC Distribution Width CV 13.1 % (11.6-14.6); RBC Distribution Width SD 38.8 fl (35.1-43.9); Red Blood Count 5.38 M/mm3 (4.6-6.2); White Blood Count 6.6 K/mm3 (4.4-11.0)
[2024-06-09] MEDS: Ketorolac 15 MG/ML Vial IV (01:48)
[2024-06-09] MEDS: Ondansetron 4 MG/2 ML Vial IV (01:48)
--- NOTE | 2024-06-09 01:58 | EX.ED.DYSGE1 ---
HPI History of Present Illness Chief Complaint: Flank Pain Detail of Chief Complaint: Abrupt right flank pain with dribbling Informant: patient Onset/Context/Timing Onset: Today (Awaken from sleep at 0130) Context: Sudden Onset Timing: Continuous and Waxes and wanes Quality: Colicky Location: Right flank Current Severity: Severe Maximum Severity: Severe Worsened by: Nothing Relieved by: Nothing Associated Symptoms Associated Symptoms: Nausea and diaphoresis Narrative Narrative: Patient is a 48-year-old male with history of ureterolithiasis requiring lithotripsy 15 years ago who is awake from sleep with a sudden onset of right flank pain with nausea and diaphoresis. He denies fever, chills chills. He denies dysuria, frequency, urgency or hematuria. There is no history of trauma. He has no history of diabetes, hypertension, renal disease or peptic ulcer disease. Prior similar symptoms: Yes Recent Illness/Hospitalization: No [facility] Medical History Herniated disc Home Medications ?Medication ?Instructions ?Recorded ?Last Taken ?Type aspirin 81 mg chewable tablet 81 mg PO DAILY@0800 11/10/17 Unknown History cyclobenzaprine 10 mg tablet 10 mg PO TID PRN PRN Pain 11/10/17 Unknown History ibuprofen 600 mg tablet 600 mg PO Q6H PRN PRN fever or 11/06/20 Unknown Rx pain #20 tabs naproxen 500 mg tablet 500 mg PO BID #14 tabs 06/09/24 Unknown Rx ondansetron 4 mg disintegrating 4 mg PO Q8H PRN PRN Nausea #6 tabs 06/09/24 Unknown Rx tablet oxycodone-acetaminophen 5 mg-325 1 tab PO Q6H PRN PRN pain 5 days 06/09/24 Unknown Rx mg tablet #20 TABLETS Allergy/AdvReac Type Severity Reaction Status Date / Time Benzodiazepines AdvReac Chest Verified 06/09/24 01:33 tightness Surgical History History of right knee surgery Social History Smoking Status: Current every day smoker tobacco type: cigarettes ROS ROS ED Constitutional Constitutional ED: Denies chills, fever(s), subjective or sweats Cardiovascular Cardiovascular: Denies chest pain or palpitations Respiratory/Chest Respiratory/Chest: Denies dyspnea or dyspnea on exertion Gastrointestinal Gastrointestinal: Reports nausea; Denies abdominal pain or vomiting Genitourinary Genitourinary ED: Reports other Details: Per HPI narrative ; Denies dysuria, hematuria or urinary frequency Musculoskeletal Musculoskeletal: Denies arthralgias or myalgias Integumentary Denies rash Neurologic Neurologic: Denies paresthesias or weakness Hematologic/Lymphatic Hematologic/Lymphatic: Reports systems reviewed and no addt'l complaints, except as documented EXAM Physical Exam Const Vital Signs: 06/09/24 01:33 06/09/24 01:36 06/09/24 03:33 Temperature 97.7 F L 97.7 F L Temperature Source Oral Oral Pulse Rate 66 66 Respiratory Rate 18 12 16 Blood Pressure 150/101 H 150/101 H Blood Pressure Mean 117 117 Pulse Ox 99 99 Oxygen Delivery Method Room Air Room Air 06/09/24 04:17 Temperature Temperature Source Pulse Rate 69 Respiratory Rate 18 Blood Pressure 146/69 H Blood Pressure Mean 94 Pulse Ox 100 Oxygen Delivery Method Positive well nourished and well developed Constitutional Narrative: Patient appears in obvious discomfort. General Appearance ED: well developed; Negative for cyanotic, diaphoretic, NAD or pallor HEENT Reports moist mucous membranes HEENT Narrative: Head is atraumatic normocephalic. Ears normal. Eyes PERRL and EOMs intact bilaterally General Eye ED: Negative for pale conjunctiva or scleral icterus Neck supple and no JVD Resp normal respiratory effort and clear to auscultation bilaterally Cardio regular rate, regular rhythm, S1 normal heart sound, S2 normal heart sound and no murmurs GI normal to inspection, nondistended, normoactive bowel sounds, non-tender, non-distended and no masses; Negative for hepatosplenomegaly Back/Spine no CVA tenderness Extremity normal to inspection General Extremety ED: Negative for edema or tenderness General Extremity: Negative for edema Neuro oriented x3 and CN's II-XII intact bilaterally Sensorium / Orientation: alert Psych mental status grossly normal Skin no rashes or lesions noted, no wounds and skin turgor normal General Skin Exam: elasticity normal; Negative for jaundice or pallor MDM MDM MDM Narrative Medical decision making narrative: With abrupt onset set of right flank pain and dribbling need to evaluate for obstructing ureterolithiasis, need to rule out infection. This may represent atypical presentation for abdominal aortic aneurysm. Symptoms not consistent with aortic dissection or biliary disease. Will obtain CBC, electrolyte function and UA. UA was obtained to assess for blood and infection. BMP to assess renal function. CBC to assess white count differential. History & Record Review Additional record(s) reviewed:: Prior ED visit (Patient was seen November 06 for bilateral flank pain. The cause of his bilateral flank pain was unknown. He did have a CAT scan which was unremarkable.) Lab Data Attestation: I reviewed the patient's lab results. Lab results narrative: CBC is unremarkable. Basic metabolic panel reveals slight elevation in glucose of 122 with a normal CO2 anion gap. Labs: Laboratory Results - last 24 hr 06/09/24 06/09/24 01:44 02:18 WBC 6.6 RBC 5.38 Hgb 15.6 Hct 44.3 MCV 82.3 MCH 29.0 MCHC 35.2 RDW Std Deviation 38.8 RDW Coeff of [place] 13.1 Plt Count 244 MPV 10.1 Immature Gran % (Auto) 0.300 Neut % (Auto) 45.3 L Lymph % (Auto) 41.6 H [place] % (Auto) 9.5 Eos % (Auto) 2.4 Baso % (Auto) 0.9 Absolute Neuts (auto) 3.0 Absolute Lymphs (auto) 2.73 Nucleated RBC % 0 Sodium 139 Potassium 3.2 L Chloride 106 Carbon Dioxide 28.0 Anion Gap 5 BUN 18 Creatinine 1.24 Estim Creat Clear Calc 94.17 Est GFR (MDRD) Af Amer 79 Est GFR (MDRD) Non-Af 66 BUN/Creatinine Ratio 14.5 Glucose 122 H Calcium 9.2 Urine Color Straw Urine Clarity Clear Urine pH 6.0 Ur Specific [place] 1.020 Urine Protein 15 H Urine Glucose (UA) Normal Urine Ketones Negative Urine Occult Blood 150 H Urine Nitrite Negative Urine Bilirubin Negative Urine Urobilinogen Normal Ur Leukocyte Esterase Negative Urine RBC 5-10 SEEN Urine WBC 0 SEEN Ur Squamous Epith Cells 0-5 SEEN Urine Bacteria RARE Urine Mucus RARE Urinalysis is remarkable for 5-10 RBCs otherwise unremarkable. Radiography Diagnostic Testing: Clinical Impression(s) from Imaging Studies Abdomen/Pelvis CT 06/09/24 01:41 IMPRESSION: Mild right hydroureteronephrosis with a 0.3 cm calculus at the right ureterovesicular junction. Electronically Signed: Gus Garcia MD at 2:57 EST , CT of the abdomen pelvis without contrast reveals renal calculi on the left. There is a 3 x 5 mm ureterolithiasis with hydronephrosis and ureter on the right. The stone is at the UVJ. Awaiting formal read by radiologist, 020. Treatment and Re-Evaluation :: Patient was reassessed at 030. He still appears uncomfortable. An additional 0.5 mg of Dilaudid was ordered. Goal is to control his pain since there is no urology on-call this weekend. Patient was reassessed at 0448. He is resting comfortably. Plan is to discharge to home with prescription for Zofran, NSAID and opiate analgesia. Discharge Plan Triage Chief Complaint: Flank Pain ED Provider: Aly Guerrero Dx/Rx/DC Orders Clinical Impression: Hydronephrosis with urinary obstruction due to ureteral calculus, Elevated blood-pressure reading without diagnosis of hypertension, Calculus of left kidney, Nausea Instructions: ED Hypertension, To Be Confirmed, ED Kidney Stone with Pain Prescriptions: New oxycodone-acetaminophen 5-325 mg tablet 1 tab PO Q6H PRN PRN (Reason: pain) 5 Days Qty: 20 0RF ondansetron 4 mg tablet,disintegrating 4 mg PO Q8H PRN PRN (Reason: Nausea) Qty: 6 0RF naproxen 500 mg tablet 500 mg PO BID Qty: 14 0RF No Action cyclobenzaprine 10 MG tablet 10 mg PO TID PRN PRN (Reason: Pain) aspirin 81 MG tablet,chewable 81 mg PO DAILY@0800 ibuprofen 600 mg tablet 600 mg PO Q6H PRN PRN (Reason: fever or pain) Qty: 20 0RF Primary Care Provider: Ruperto Cottrell Referrals: Erich Crews MD [Med Staff - Active Staff] - 1 Week Ruperto Cottrell MD [Primary Care Provider] - 1-2 Weeks Print Language: Welsh Disposition Disposition: Home, Self Care
[2024-06-09 02:02] LABS: Anion Gap 5 (5-15); BUN 18 mg/dL (7-18); BUN/Creat Ratio 14.5 RATIO (10-20); Calcium,Total 9.2 mg/dL (8.5-10.1); Chloride 106 mmol/L (98-107); Creatinine, Serum 1.24 mg/dL (0.70-1.30); EST Glomerular Filtration Rate 66 mL/min (>60); Est Glom Filt Rate - Afr Amer 79 mL/min (>60); Estimated Creatinine Clearance 94.17 ml/min; Glucose 122 mg/dL (74-106); Potassium 3.2 mmol/L (3.5-5.1); Sodium Level 139 mmol/L (136-145)
[2024-06-09] MEDS: HYDROmorphone 0.5 MG/0.5 ML SYRINGE IV ×3 (02:15→04:14)
[2024-06-09 02:28] LABS: White Blood Cells 0 SEEN /hpf (0-5)
[2024-06-09 02:29] LABS: Color, Urine Straw (Yellow); Glucose, Dipstick Normal (Normal); Ketone-Dipstick Negative (Negative); Leukocyte Esterase-Dipstick Negative /ul (Negative); Nitrite-Dipstick Negative (Negative); Occult Blood-Urine 150 /ul (Negative); Protein-Dipstick 15 mg/dl (Negative); Urine Bilirubin Dipstick Negative (Negative); Urine Clarity Clear (Clear); Urine Urobilinogen Normal (Normal)
[2024-06-09 02:54] LABS: Bacteria RARE /hpf (None Seen); Mucous, Urine RARE /hpf (<or=2+); Red Blood Cells-Urine 5-10 SEEN /hpf (0-5); Squamous Epithelial Cells - UA 0-5 SEEN /hpf (0-5)
[2024-06-09 03:33] VITALS: RESP 16
[2024-06-09 04:17] VITALS: BP 146/69; PULSE 69; RESP 18; O2SAT 100
[2024-06-09 05:05] VITALS: BP 133/82; PULSE 82; RESP 18; TEMP 36.6; O2SAT 98
== END 2024-06-09 05:07 | disposition home or self-care (01) ==
PROVIDERS: Emergency Provider Emergency Medicine; PCP Family Medicine; Visit Provider Emergency Medicine
DX: N13.2 Hydronephrosis with renal and ureteral calculous obstruction (principal); R11.0 Nausea; R03.0 Elevated blood-pressure reading, without diagnosis of hypertension; F17.210 Nicotine dependence, cigarettes, uncomplicated
CPT/HCPCS: 74176; 80048; 81001; 85025; 96374; 96375; 96376; 99282; A4216; J2405

== ENCOUNTER 2024-06-13 12:32 | Day surgery (SDC) | payer OTHER, SELFPAY ==
--- NOTE | 2024-06-12 15:56 | PAT.ANESEVAL ---
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 When Was Last Pacemaker Check QUESTION #4 FULL TEXT: You/Your Family Experience fever (hyperthermia) with Anesthesia Last Oral Intake Last Oral intake: Last Oral Intake NPO since Meds taken in AM with sips of water? Meds patient instructed to take am of surgery PONV PONV - panel sewer: PONV - panel sewer Female No 06/12/24 12:01 HX of Motion Sickness Yes 06/12/24 12:01 HX of N/V After Surgery No 06/12/24 12:01 Non-Smoker Yes 06/12/24 12:01 Duration of Surgery greater No 06/12/24 12:01 than 60 minutes Number of Risk Factors 2 06/12/24 12:01 PONV Score Moderate Risk 06/12/24 12:01 Height & Weight Height & Weight: Anesthesia: Height & Weight Height 6 ft 3 in 06/09/24 01:33 Respiratory Assessment Respiratory Assessment - panel sewer: Respiratory Tract Infection Hx - panel sewer Hx Respiratory Tract Infection No 06/12/24 12:01 STOP Sleep Apnea STOP Sleep Apnea - panel sewer: STOP Sleep Apnea - panel sewer Hx Hypertension No 06/12/24 12:01 Hx Sleep Apnea No 06/12/24 12:01 CPAP No 06/12/24 12:01 BIPAP No 06/12/24 12:01 Do you snore loudly (louder No 06/12/24 12:01 than talking or can be heard Do you often feel tired/ No 06/12/24 12:01 fatigued/ sleepy during daytime? Has anyone observed you stop No 06/12/24 12:01 breathing during sleep? STOP Results Negative 06/12/24 12:01 QUESTION #5 FULL TEXT : Do you snore loudly (louder than talking or can be heard through closed doors)? 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 Specify any problems Hx of Preganancy in last 3 N/A 06/12/24 12:01 Months Nurse Filling Out Transfusion VCHRISTIN 06/12/24 12:01 & Questions: Date: 06/12/24 06/12/24 12:01 Time: 12:03 06/12/24 12:01 Patient unable to answer at this time (ie. confused, unrespo /Reproduction History /Reproductive History - panel sewer: /Reproductive Hx- panel sewer Hx Now No 06/12/24 12:01 Gestational Age (in weeks): EDC: Hx Hx Para Hx Section SAB No 06/12/24 12:01 Active Medications Active Medications: Current Medications Generic Name Dose Route Start Last Admin Trade Name Freq PRN Reason Stop Dose Admin Cefazolin Sodium 2 gm/ N/A 20 mls @ 400 mls/hr 06/13/24 14:45 IV 06/13/24 14:47 PREOP ONE [facility] Medical History (Updated 06/12/24 @ 12:01 by Kacey Wyatt) Anxiety Back pain Injury of back Injury of head and neck Syncope Former smoker History of stress test History of irregular heartbeat Herniated disc Home Medications ?Medication ?Instructions ?Recorded ?Last Taken ?Type aspirin 81 mg chewable tablet 81 mg PO DAILY@0800 PRN angina 11/10/17 Unknown History naproxen 500 mg tablet 500 mg PO BID #14 tabs 06/09/24 Unknown Rx ondansetron 4 mg disintegrating 4 mg PO Q8H PRN PRN Nausea #6 tabs 06/09/24 Unknown Rx tablet oxycodone-acetaminophen 5 mg-325 1 tab PO Q6H PRN PRN pain 5 days 06/09/24 Unknown Rx mg tablet #20 TABLETS ascorbic acid (vitamin C) 500 mg 1 g PO QODAY 06/12/24 Unknown History tablet (C-500) cholecalciferol (vitamin D3) 100 100 mcg PO DAILY 06/12/24 Unknown History mcg (4,000 unit) capsule copper gluconate 2 mg capsule 4 mg PO .QOD 06/12/24 Unknown History Allergy/AdvReac Type Severity Reaction Status Date / Time Benzodiazepines AdvReac Chest Verified 06/12/24 11:47 tightness Surgical History (Updated 06/12/24 @ 12:01 by Kacey Wyatt) History of cardiac catheterization Hx of cystoscopy History of right knee surgery Social History Smoking Status: Former smoker Audit: Pertinent Findings Pertinent Findings EKG Perinent findings: November 06, 2020. Normal sinus rhythm with sinus arrhythmia. Incomplete right bundle branch block. November 04, 2017. Sinus tachycardia at 102 bpm. Heart catheterization pertinent findings: November 11, 2017. Normal coronary arteries. Normal ejection fraction 65%. Recommendation Anesthesia Recommendation Anesthesia recommendation: OPTIMIZED for anesthesia
[2024-06-13] VITALS (8 sets, daily range): BP systolic 111–146; BP diastolic 80–94; PULSE 55–83; RESP 16–20; TEMP 36.1–36.7; O2SAT 92–100; BMI 28.6
--- NOTE | 2024-06-13 | CALC_PTH ---
PATIENT: JANI ABDALLA [place] [facility] [place][id number] AGE/SX: 48/M ROOM: RE06/13/[address]: Dr. Erich Crews MD : [id number] BED: DIS: 06/13/2024 SPEC #: [id number] RECD: 06/13/24 14:40 STATUS: VIKRAM OAKES #: [id number] JOHN: 06/13/24 00:[address]: Erich Crews DEPT: SURGICAL PATHOLOGY RECD BY: Rubi Camarena ENTERED: 06/14/24 08:09 SP TYPE: Calculi OTHR DR: Dr. Ruperto Cottrell MD Tissues: CALCULI Procedures: Surgery Specimen Level I HEADER OPERATION: Ureteroscopy, balloon dilation, stone extraction PRE-OP DIAGNOSIS: Right ureteral calculus TISSUE SUBMITTED: Right kidney stone GROSS DIAGNOSIS A fragment of stone, clinically right kidney stone (gross only). [email or web address] 06/14/2024 COMMENT The calculus is submitted in its entirety for chemical stone analysis. The results from this study will be reported separately. GROSS DESCRIPTION Received without fixative labeled with the patient's name and designated right kidney stone. The specimen consists of a fragment of black stone measuring 0.4 x 0.3 x 0.2 cm. The entire specimen is submitted for stone analysis. 06/14/2024 CPT: 93613
--- NOTE | 2024-06-13 12:47 | CT_ITS ---
STUDY: CT ABDOMEN AND PELVIS WITHOUT CONTRAST REASON FOR EXAM: Male, 48 years old. Kidney stones RADIATION DOSAGE (If Supplied By Facility): CTDIvol = ( 12.29 ) mGy, DLP = ( 626.60 ) mGycm TECHNIQUE: Transaxial images were obtained from the dome of the diaphragm to the symphysis pubis without oral contrast, and without intravenous contrast. Sagittal and coronal images were reconstructed. Individualized dose optimization techniques were used for this CT. COMPARISON: Comparison is made with prior study dated June 09, 2024 FINDINGS: The visualized lung bases are unremarkable. The visualized portions of the heart are within normal limits. No coronary artery calcification is seen. Normal liver. Normal gallbladder and extrahepatic biliary system. There are multiple benign calcified granulomata of the spleen. Normal pancreas. Normal bilateral adrenal glands. Nonobstructive punctate calculus in the lower pole calyx of the right kidney. Mild degree of right hydronephrosis and right hydroureter due to a 2.5 mm calculus at the right ureterovesical junction. Punctate nonobstructive calculus in the upper pole calyx of the left kidney. Normal visualized stomach. Normal small intestine. Normal colon. The appendix is visualized and appears normal. There is scattered atherosclerotic calcification of the abdominal aorta, without a demonstrated aneurysm. Normal inferior vena cava. Normal retroperitoneum. Normal urinary bladder. Enlargement of the seminal vesicles bilaterally. Prostatic calcifications. Normal abdominal wall. Normal osseous structures. CT/Abdomen/Pelvis without Cont IMPRESSION: 2.5 mm calculus at the right ureterovesical junction causing a mild degree of right hydronephrosis and right hydroureter. Nonobstructive punctate calculi in both kidneys. Electronically Signed: Aki Richard MD at 13:17 EST ,
--- NOTE | 2024-06-13 12:57 | PRE.ANES_ITS ---
ASA Classification* ASA Classification ASA Classification: 2 Assessment & Plan Anesthesia* Anesthesia Assessment Anesthesia Assessment: Discussed sedation and/or anesthesia options, risks, benefits, and alternatives with patient/parents/legal guardian/POA. Questions invited. The patient/parents/legal guardian/POA seems to understand and agrees to proceed with anesthesia plan. Reviewed the physical assessment, medical history, allergy history and patient home medications list prior to surgery/procedure/anesthetic and documented any changes. Performed airway and anesthesia risk assessments. Anesthesia Type Anesthesia Type: General Anesthesia Focused Assessment* Airway Assessment Mouth opens: >3 cm Mallampati Score: II Focused Labs Anesthesia Preop lab: CBC WBC 6.6 K/mm3 (4.4-11.0) 06/09/24 01:44 RBC 5.38 M/mm3 (4.6-6.2) 06/09/24 01:44 Hgb 15.6 g/dL (13.0-16.5) 06/09/24 01:44 Hct 44.3 % (40-54) 06/09/24 01:44 Plt Count 244 K/mm3 (150-450) 06/09/24 01:44 CHEMISTRY Potassium 3.2 mmol/L (3.5-5.1) L 06/09/24 01:44 Sodium 139 mmol/L (136-145) 06/09/24 01:44 Magnesium 2.1 mg/dL (1.6-2.6) 11/04/17 15:23 BUN 18 mg/dL (7-18) 06/09/24 01:44 Creatinine 1.24 mg/dL (0.70-1.30) 06/09/24 01:44 Glucose 122 mg/dL (74-106) H 06/09/24 01:44 POC Glucose 73 mg/dL (70-110) 06/04/13 14:29 TSH 0.66 uIU/mL (0.358-3.74) 11/04/17 15:23 COAG PT 13.6 SECONDS (11.7-14.9) 11/04/17 15:23 Pre-Assessment Diagnosis/Proposed Procedure Planned Operative Procedure(s): CYSTO, URETEROSCOPY, RETRO, LASER, STENT Anesthesia History Anesthesia History - relations manager: Anesthesia History - relations manager Hx Hospitalization No 01/14/25 12:01 Any Problems With Anesthesia Yes: HARD TIME WAKING 06/12/24 12:01 Cholinesterase deficiency No 06/12/24 12:01 You/Your Family Experience No 06/12/24 12:01 fever (hyperthermia) with Relationship Recent Exposure to Contagious No 06/04/13 22:22 Disease Does patient have nerve No 06/12/24 12:01 stimulator Patient instructed to have device shut off --Does patient have Pacemaker or ICD? When Was Last Pacemaker Check QUESTION #4 FULL TEXT: You/Your Family Experience fever (hyperthermia) with Anesthesia Last Oral Intake Last Oral intake: Last Oral Intake NPO since Meds taken in AM with sips of water? Meds patient instructed to take am of surgery PONV PONV - relations manager: PONV - relations manager Female No 06/12/24 12:01 HX of Motion Sickness Yes 06/12/24 12:01 HX of N/V After Surgery No 06/12/24 12:01 Non-Smoker Yes 06/12/24 12:01 Duration of Surgery greater No 06/12/24 12:01 than 60 minutes Number of Risk Factors 2 06/12/24 12:01 PONV Score Moderate Risk 06/12/24 12:01 Height & Weight Height & Weight: Anesthesia: Height & Weight Height 6 ft 3 in 06/09/24 01:33 Respiratory Assessment Respiratory Assessment - relations manager: Respiratory Tract Infection Hx - relations manager Hx Respiratory Tract Infection No 06/12/24 12:01 STOP Sleep Apnea STOP Sleep Apnea - relations manager: STOP Sleep Apnea - relations manager Hx Hypertension No 06/12/24 12:01 Hx Sleep Apnea No 06/12/24 12:01 CPAP No 06/12/24 12:01 BIPAP No 06/12/24 12:01 Do you snore loudly (louder No 06/12/24 12:01 than talking or can be heard Do you often feel tired/ No 06/12/24 12:01 fatigued/ sleepy during daytime? Has anyone observed you stop No 06/12/24 12:01 breathing during sleep? STOP Results Negative 06/12/24 12:01 QUESTION #5 FULL TEXT : Do you snore loudly (louder than talking or can be heard through closed doors)? Tobacco Use History Tobacco Use History - relations manager: Tobacco Use History - relations manager Tobacco Use Smoking Status Former smoker 06/12/24 12:01 Hx Tobacco Use No 06/12/24 12:01 Years Smoking Packs Smoked per Day Smoking Cessation Date was No - quit smoking greater 06/12/24 12:01 within the last 15 years than 15 years ago Hx Smoking Cessation Date 05/30/03 06/12/24 12:01 Hx Smoking Cessation No 06/12/24 12:01 Counseling Hematologic Medial History Hematologic Hx - relations manager: Hematologic Medical Hx - office clinician Hx of Blood Transfusion No 06/12/24 12:01 Hx of Transfusion in last 3 No 06/12/24 12:01 Months Date of Last Transfusion (if within last 3 months) Ever experience any problems No 06/12/24 12:01 with transfusion(s)? Specify any problems Hx of Preganancy in last 3 N/A 06/12/24 12:01 Months Nurse Filling Out Transfusion VCHRISTIN 06/12/24 12:01 & Questions: Date: 06/12/24 06/12/24 12:01 Time: 12:03 06/12/24 12:01 Patient unable to answer at this time (ie. confused, unrespo /Reproduction History /Reproductive History - relations manager: /Reproductive Hx- relations manager Hx Now No 06/12/24 12:01 Gestational Age (in weeks): EDC: Hx Hx Para Hx Section SAB No 06/12/24 12:01 Active Medications Active Medications: Current Medications Generic Name Dose Route Start Last Admin Trade Name Freq PRN Reason Stop Dose Admin Cefazolin Sodium 2 gm/ N/A 20 mls @ 400 mls/hr 06/13/24 14:45 IV 06/13/24 14:47 PREOP ONE PFSH Medical History Anxiety Back pain Injury of back Injury of head and neck Syncope Former smoker History of stress test History of irregular heartbeat Herniated disc Home Medications ?Medication ?Instructions ?Recorded ?Last Taken ?Type aspirin 81 mg chewable tablet 81 mg PO DAILY@0800 PRN angina 11/10/17 Unknown History naproxen 500 mg tablet 500 mg PO BID #14 tabs 06/09/24 Unknown Rx ondansetron 4 mg disintegrating 4 mg PO Q8H PRN PRN Nausea #6 tabs 06/09/24 Unknown Rx tablet oxycodone-acetaminophen 5 mg-325 1 tab PO Q6H PRN PRN pain 5 days 06/09/24 Unknown Rx mg tablet #20 TABLETS ascorbic acid (vitamin C) 500 mg 1 g PO QODAY 06/12/24 Unknown History tablet (C-500) cholecalciferol (vitamin D3) 100 100 mcg PO DAILY 06/12/24 Unknown History mcg (4,000 unit) capsule copper gluconate 2 mg capsule 4 mg PO .QOD 06/12/24 Unknown History Allergy/AdvReac Type Severity Reaction Status Date / Time Benzodiazepines AdvReac Chest Verified 06/12/24 11:47 tightness Surgical History History of cardiac catheterization Hx of cystoscopy History of right knee surgery Social History Smoking Status: Former smoker Review of Systems (Anesthesia) ROS Narrative System reviewed and no additional complaints, except as documented.
--- NOTE | 2024-06-13 13:14 | PCM.HP.STD ---
HPI - General HPI Narrative JANI ABDALLA, is a 48 M who presents to laser and remove small stone in distal right ureter. PFSH Medical History Anxiety Back pain Injury of back Injury of head and neck Syncope Former smoker History of stress test History of irregular heartbeat Herniated disc Home Medications ?Medication ?Instructions ?Recorded ?Last Taken ?Type aspirin 81 mg chewable tablet 81 mg PO DAILY@0800 PRN angina 11/10/17 Unknown History naproxen 500 mg tablet 500 mg PO BID #14 tabs 06/09/24 Unknown Rx ondansetron 4 mg disintegrating 4 mg PO Q8H PRN PRN Nausea #6 tabs 06/09/24 Unknown Rx tablet oxycodone-acetaminophen 5 mg-325 1 tab PO Q6H PRN PRN pain 5 days 06/09/24 Unknown Rx mg tablet #20 TABLETS ascorbic acid (vitamin C) 500 mg 1 g PO QODAY 06/12/24 Unknown History tablet (C-500) cholecalciferol (vitamin D3) 100 100 mcg PO DAILY 06/12/24 Unknown History mcg (4,000 unit) capsule copper gluconate 2 mg capsule 4 mg PO .QOD 06/12/24 Unknown History oxycodone 5 mg tablet 5 mg PO Q6H PRN pain 7 days #14 06/13/24 Unknown Rx tabs Allergy/AdvReac Type Severity Reaction Status Date / Time Benzodiazepines AdvReac Chest Verified 06/12/24 11:47 tightness Surgical History History of cardiac catheterization Hx of cystoscopy History of right knee surgery Social History Smoking Status: Former smoker
--- NOTE | 2024-06-13 13:15 | PCM.DC ---
Discharge Instructions Diet Discharge Diet: No restrictions DC O2, CPAP, BIPAP needs Home O2 Discharge instructions: No Dressing / Incision Discharge Activity: Return to Normal Activity and May Not Drive (while taking narcotic pain medications.) Dressing / Incision Call your doctor if you observe: Fever of 101 or Higher Follow Up Care Please Follow Up With: Erich Crews MD When: Call [phone] for an appointment Test Results: Test results from this visit will be discussed in further detail at your follow-up appointment, if applicable. Discharge Plan Admission Primary Reason for Your Visit: kidney stone. Attending Provider: Erich Crews Primary Care Provider: Ruperto Cottrell Instructions Print Language: Vietnamese Discharge Orders/Prescriptions Prescriptions: New oxycodone 5 mg tablet 5 mg PO Q6H PRN (Reason: pain) 7 Days Qty: 14 0RF Continued aspirin 81 MG tablet,chewable 81 mg PO DAILY@0800 PRN (Reason: angina) oxycodone-acetaminophen 5-325 mg tablet 1 tab PO Q6H PRN PRN (Reason: pain) 5 Days Qty: 20 0RF ondansetron 4 mg tablet,disintegrating 4 mg PO Q8H PRN PRN (Reason: Nausea) Qty: 6 0RF naproxen 500 mg tablet 500 mg PO BID Qty: 14 0RF cholecalciferol (vitamin D3) 100 mcg (4,000 unit) capsule 100 mcg PO DAILY copper gluconate 2 mg capsule 4 mg PO .QOD ascorbic acid (vitamin C) [C-500] 500 mg tablet 1 g PO QODAY Referrals / Follow Up: Ruperto Cottrell MD [Primary Care Provider] - Disposition Disposition (needs filled in before D/C Order can be placed): Home, Self Care
[2024-06-13] MEDS: Cefazolin 2 GM in Syringe IV (14:10)
--- NOTE | 2024-06-13 14:29 | OP.PCM_ITS ---
Operative Report (Standard) Operative Information Date of Procedure: 06/13/24 Pre-Operative Diagnosis: Distal right ureteral calculi Post-Operative Diagnosis: The same Surgery/Procedure Performed: Cystoscopy balloon dilation of the right ureter ureteroscopy basket extraction of stone and stent liability claims representative: No Type of Anesthesia: General RN Documented Start/Stop Times: Operation Date: 06/13/24 14:45 Case Time Into Pre-Op 06/13/24 13:10 Out of Pre-Op 06/13/24 14:01 Anesthesia Start 06/13/24 14:05 Into Room 06/13/24 14:05 Procedure Start 06/13/24 14:20 Procedure End 06/13/24 14:29 Procedure Start Time: 14:20 Procedure Stop Time: 14:30 Select all DRAINS/GRAFTS/IMPLANTS that apply: None Estimated Blood Loss: 0 Specimen collected: Yes Description of specimen(s) removed: Kidney stone Description of surgery: Patient was taken back to the operating room after induction of anesthesia he was placed in dorsal lithotomy position the urethra testicles were prepped and draped in usual sterile fashion within the bladder with a 21 Croatian rigid cystourethroscope the entire length urethra and prostate was normal the trigone was normal the left and right ureter orifice were identified the right ureter orifice looked a little stenotic tried to advance a wire through the ureter but it would go past the stone I then was able to the wire passed and then we balloon dilated the distal right ureter then after this left the wire in place and then next of the wire went in with a semirigid ureteroscope we used a engage basket and was able to basket the stone out completely in 1 piece the stone was sent for analysis. I then pulled out the wire the ureter appeared to be draining normally bladder was drained patient has had it was worsening to take back to the PACU in good condition no stent placed. Surgical Findings: stone removed, no stent Complications Complications: No Admit VTE Documentation VTE Present on Admission: No VTE Mechan Device Prophylaxis: SCD's VTE Pharm Prophylaxis ordered?: No
--- NOTE | 2024-06-13 14:43 | PCM.POST.ANE ---
Anesthesia: Postop Eval I Current Vital Signs Temperature: 97.3 F Pulse Rate: 60 Blood Pressure: 114/80 Respiratory Rate: 16 Pulse Ox: 93 Oxygen Delivery Method: Room Air Assessment Airway patent: Yes Spontaneous unlabored respirations: Yes Mental status: Awake and Calm nausea: No Vomiting: No Anesthesia Complication: No Fluid Hydration Crystalloid volume administer (ml): 600 Total IV fluid infused: 600 Progress Note Anesthesia document: Postop Eval 1 completed: Yes
--- NOTE | 2024-06-13 14:44 | PCM.POST.ANE ---
Anesthesia: Postop Eval I Current Vital Signs Temperature: 97.3 F Pulse Rate: 63 Blood Pressure: 111/84 Respiratory Rate: 16 Pulse Ox: 94 Oxygen Delivery Method: Room Air Assessment Airway patent: Yes Spontaneous unlabored respirations: Yes Mental status: Asleep nausea: No Vomiting: No Anesthesia Complication: No Fluid Hydration Crystalloid volume administer (ml): 600 Total IV fluid infused: 600 Progress Note Anesthesia document: Postop Eval 1 completed: Yes
[2024-06-13] MEDS: Ketorolac 15 MG/ML Vial IV (14:58)
--- NOTE | 2024-06-13 15:03 | POSTOPAN2_ITS ---
Anesthesia Postop Eval I Sum Postop Eval Completion status Anesthesia document: Postop Eval 1 completed: Yes Anesthesia Postop Eval I Summary Anesthesia Postop Eval I Summary: Anesthesia Postop Eval I: Assessment Summary Airway patent Yes 06/13/24 14:45 CALL [email or web address] Spontaneous unlabored Yes 06/13/24 14:45 CALL [email or web address] respirations Mental status Asleep 06/13/24 14:45 CALL [email or web address] nausea No 06/13/24 14:45 CALL [email or web address] Vomiting No 06/13/24 14:45 CALL [email or web address] Anesthesia Postop Eval I: Fluid Summary Crystalloid volume administer 600 06/13/24 14:45 CALL [email or web address] (ml) Colloids volume administered ( ml) Blood Product volume administered (ml) Total IV fluid infused 600 06/13/24 14:45 CALL [email or web address] Anesthesia Postop Eval I: Summary Notes Anesthesia Complication No 06/13/24 14:45 CALL [email or web address] Anesthesia Complication Comment: Post-operative progress note Anesthesia: Postop Eval II Evaluation Mental status: Awake Pain Level: 0 nausea: No Vomiting: No
--- NOTE | 2024-06-13 15:03 | PCM.POSTANE2 ---
Anesthesia Postop Eval I Sum Postop Eval Completion status Anesthesia document: Postop Eval 1 completed: Yes Anesthesia Postop Eval I Summary Anesthesia Postop Eval I Summary: Anesthesia Postop Eval I: Assessment Summary Airway patent Yes 06/13/24 14:45 [email or web address] Spontaneous unlabored Yes 06/13/24 14:45 FUR [email or web address] respirations Mental status Asleep 06/13/24 14:45 FUR [email or web address] nausea No 06/13/24 14:45 FUR [email or web address] Vomiting No 06/13/24 14:45 FUR [email or web address] Anesthesia Postop Eval I: Fluid Summary Crystalloid volume administer 600 06/13/24 14:45 FUR [email or web address] (ml) Colloids volume administered ( ml) Blood Product volume administered (ml) Total IV fluid infused 600 06/13/24 14:45 FUR [email or web address] Anesthesia Postop Eval I: Summary Notes Anesthesia Complication No 06/13/24 14:45 FUR [email or web address] Anesthesia Complication Comment: Post-operative progress note Anesthesia: Postop Eval II Evaluation Mental status: Awake Pain Level: 0 nausea: No Vomiting: No
[2024-06-15 12:59] VITALS: BP 114/80; PULSE 60; RESP 16; TEMP 36.3; O2SAT 93
[2024-06-21 14:08] LABS: Ca Oxalate, Dihydrate 40 % (.); Ca Oxalate, Monohydrate 55 % (.); Calcium Phosphate (hydroxyl) 5 % (.); Size 3x3 mm (.)
== END 2024-06-13 16:37 | disposition home or self-care (01) ==
LOC: SDC 12:34 → AC 12:35
PROVIDERS: PCP Family Medicine; Referring Provider Urology; Visit Provider Urology
PROC: 0TJ98ZZ Inspection of Ureter, Via Natural or Artificial Opening Endoscopic (ICD-10-PCS; CPT 52352; principal; 2024-06-13 14:35)
DX: N20.2 Calculus of kidney with calculus of ureter (principal); Z87.891 Personal history of nicotine dependence
CPT/HCPCS: 52352; 00918

== ENCOUNTER 2024-09-10 17:07 | Emergency (ER) | payer BC, SELFPAY ==
[2024-09-10 17:08] VITALS: BP 154/102; PULSE 108; RESP 22; TEMP 36.6; O2SAT 100; BMI 29.4
--- NOTE | 2024-09-10 19:49 | EKG12_ITS ---
Test Reason : PALP Blood Pressure : */* mmHG Vent. Rate : 93 BPM Atrial Rate : 93 BPM P-R Int : 174 ms QRS Dur : 110 ms QT Int : 350 ms P-R-T Axes : 50 28 41 degrees QTcB Int : 435 ms Normal sinus rhythm with sinus arrhythmia Incomplete right bundle branch block Borderline ECG Confirmed by Agustin Champagne ([id number]), videotape editor VANE JUNG ([id number]) on 09/11/2024 11:31:20 AM Referred By: ANDREAS/TRINA Confirmed By: Agustin Champagne
--- NOTE | 2024-09-10 19:50 | EX.ED.DYSGE1 ---
HPI History of Present Illness Chief Complaint: Anxiety Informant: patient Onset/Context/Timing Onset: Today Context: Gradual Onset Timing: Continuous Quality: Sharp, pinching Location: Chest Worsened by: Stress Relieved by: Nothing Narrative Narrative: Patient presents with chest pain that began today. Patient states he got into an argument with a coworker. Patient states this caused him to start to have some anxiety and chest pain. Patient describes his pain as a sharp and pinching sensation. Patient states it is worse with stress. Patient states that it came on gradually. Patient states it has been constant. Patient states nothing seems to help with it. Patient states that he talked to the expediter who advised him to come to the emergency department. [facility] Medical History Anxiety Back pain Injury of back Injury of head and neck Syncope Former smoker History of stress test History of irregular heartbeat Herniated disc Home Medications ?Medication ?Instructions ?Recorded ?Last Taken ?Type aspirin 81 mg chewable tablet 81 mg PO DAILY@0800 PRN angina 11/10/17 Unknown History ascorbic acid (vitamin C) 500 mg 1 g PO QODAY 06/12/24 Unknown History tablet (C-500) copper gluconate 2 mg capsule 4 mg PO .QOD 06/12/24 Unknown History cholecalciferol (vitamin D3) 25 4,000 unit PO DAILY 09/10/24 Unknown History mcg (1,000 unit) chewable tablet (Vitamin D3) omega 0-hrg-mgi-fish oil 1,200 mg 2 cap PO DAILY 09/10/24 Unknown History (144 mg-216 mg) capsule (Fish Oil) Allergy/AdvReac Type Severity Reaction Status Date / Time Benzodiazepines AdvReac Chest Verified 09/10/24 17:12 tightness Surgical History History of cardiac catheterization Hx of cystoscopy History of right knee surgery Social History Smoking Status: Former smoker ROS ROS ED Constitutional Constitutional ED: Denies chills or fever(s) Eyes Eyes: Denies blurry vision or change in vision ENT ENT ED: Denies rhinorrhea or sore throat Cardiovascular Cardiovascular: Reports chest pain; Denies palpitations Respiratory/Chest Respiratory/Chest: Denies cough or dyspnea Gastrointestinal Gastrointestinal: Denies nausea or vomiting Genitourinary Genitourinary ED: Denies dysuria or hematuria Musculoskeletal Musculoskeletal: Denies back pain or neck pain Integumentary Denies abscess or rash Neurologic Neurologic: Denies headache(s) or weakness Allergic/Immunologic Allergic/Immunologic ED: Denies mouth swelling or urticaria EXAM Physical Exam Const Vital Signs: 09/10/24 17:08 09/10/24 20:00 09/10/24 20:07 Temperature 98 F Temperature Source Oral Pulse Rate 108 H 93 Respiratory Rate 22 H 18 Blood Pressure 154/102 H 130/81 H Blood Pressure Mean 119 97 Pulse Ox 100 98 98 Oxygen Delivery Method Room Air Room Air Room Air Positive well nourished and well developed Constitutional Narrative: BMI is 29.4 General Appearance ED: well developed and NAD HEENT Reports moist mucous membranes Neck supple and no JVD Resp normal respiratory effort and clear to auscultation bilaterally Cardio regular rate and regular rhythm GI non-distended Palpation: soft and tender LUQ (Mild); Negative for guarding or rebound tenderness present Extremity normal to inspection General Extremety ED: Negative for edema or tenderness General Extremity: Negative for edema Neuro oriented x3, CN's II-XII intact bilaterally and no sensory deficits noted Motor Exam: strength 5/5 throughout Psych mental status grossly normal MDM MDM MDM Narrative Medical decision making narrative: Differential diagnose includes cardiac dysrhythmia, cardiac ischemia, pneumonia, electrolyte abnormality, musculoskeletal pain, and anxiety. EKG will be obtained to assess for cardiac dysrhythmia and cardiac ischemia. Chest x-ray will be obtained to assess for pneumonia and bronchitis. CBC will be obtained to assess for leukocytosis and anemia. Basic metabolic profile will be obtained to assess for electrolyte abnormality renal function. High-sensitivity troponin will be obtained to assess for cardiac ischemia. Lab Data Attestation: I reviewed the patient's lab results. Lab results narrative: CBC was reviewed and was within normal limits. Basic metabolic profile was reviewed and was within normal limits. High-sensitivity troponin was reviewed and was normal at 7. Labs: Laboratory Results - last 24 hr 09/10/24 20:00 WBC 8.6 RBC 5.14 Hgb 15.0 Hct 42.2 MCV 82.1 MCH 29.2 MCHC 35.5 RDW Std Deviation 38.4 RDW Coeff of [place] 12.8 Plt Count 244 MPV 9.8 Immature Gran % (Auto) 0.200 Neut % (Auto) 78.0 H Lymph % (Auto) 15.2 L [place] % (Auto) 5.9 Eos % (Auto) 0.1 Baso % (Auto) 0.6 Absolute Neuts (auto) 6.7 Absolute Lymphs (auto) 1.31 Nucleated RBC % 0 Sodium 138 Potassium 4.0 Chloride 104 Carbon Dioxide 23.3 Anion Gap 11 BUN 15 Creatinine 1.13 Estim Creat Clear Calc 101.50 Est GFR (MDRD) Non-Af 79 BUN/Creatinine Ratio 13.6 Glucose 113 H Calcium 9.6 Troponin T High Sens 7 Radiography Chest X-Ray - ED: 1 View, Read by ED Physician, Read by Radiologist and No Acute Disease Diagnostic Testing: Clinical Impression(s) from Imaging Studies Chest X-Ray 09/10/24 19:54 IMPRESSION: No Acute Findings. Reading Location: [facility] Portable 1 view chest x-ray was obtained. On my independent interpretation, lung momin are clear. There is normal cardiac silhouette. Bony thorax is normal. There is no acute process noted. Radiologist also interpreted the x-ray and agrees. EKG Initial EKG: Attestation: I personally reviewed and interpreted this EKG as follows: Interpretation: Sinus Rhythm (93) and No Acute Injury Pattern Comments: EKG was obtained. On my independent interpretation, it showed a normal sinus rhythm with a rate of 93. UT interval, QRS interval, and QTc intervals were all normal. [place] was normal. There are no acute ST or T wave changes. Prior EKG tracings: available for review Prior: Unchanged (11/06/2020) Treatment and Re-Evaluation :: Patient was given aspirin. Patient was feeling better on reevaluation. Patient was advised of his findings. Patient has a HEART score of 1. Patient was advised that this is low risk for acute cardiac event. Patient was instructed to follow-up with his primary care physician in 5 to 7 days. Patient was instructed return if worse in any way. Patient understood and was agreeable with the plan. All questions were answered. Discharge Plan Triage Chief Complaint: Anxiety ED Provider: Michele Schmitt Dx/Rx/DC Orders Clinical Impression: Chest pain, Elevated blood pressure reading without diagnosis of hypertension Instructions: ED Chest Pain, Uncertain Cause Prescriptions: No Action aspirin 81 MG tablet,chewable 81 mg PO DAILY@0800 PRN (Reason: angina) copper gluconate 2 mg capsule 4 mg PO .QOD ascorbic acid (vitamin C) [C-500] 500 mg tablet 1 g PO QODAY omega 0-vds-auo-fish oil [Fish Oil] 1,200 (144-216) mg capsule 2 cap PO DAILY cholecalciferol (vitamin D3) [Vitamin D3] 25 mcg (1,000 unit) tablet,chewable 4,000 unit PO DAILY Primary Care Provider: Ruperto Cottrell Referrals: Ruperto Cottrell MD [Primary Care Provider] - 5-7 Days Print Language: Upper Sorbian Disposition Disposition: Home, Self Care
--- NOTE | 2024-09-10 19:54 | RAD_ITS ---
PROCEDURE: CHEST 1 VIEW (PORTABLE) 09/10/2024 REASON FOR EXAM: CHEST PAIN TECHNIQUE: Frontal view of the chest. COMPARISON: None FINDINGS: Hardware: None Heart: The heart size is normal. Lungs: The lungs are clear. Bones: The bones are unremarkable. Other: RAD/Chest 1 View (Portable) IMPRESSION: No Acute Findings. Reading Location: [facility]
[2024-09-10 20:00] VITALS: BP 130/81; PULSE 93; RESP 18; O2SAT 98
[2024-09-10 20:07] VITALS: O2SAT 98
[2024-09-10 20:08] LABS: Absolute Lymphocyte Count 1.31 X10^3/uL (0.83-4.51); Absolute Neutrophil Count 6.7 X10^3/uL (2.0-7.7); Basophil# 0.05 X10^3/uL; Basophil% 0.6 % (0-1); Eosinophil# 0.01 X10^3/uL; Eosinophils% 0.1 % (0-5); Hematocrit 42.2 % (40-54); Lymphocyte # 1.31 X10^3/ul (0.83-4.51); Lymphocyte % 15.2 % (19-41); Mean Corp Hgb Conc 35.5 g/dL (32-36); Mean Corpuscular Hgb 29.2 pg (27.0-32.0); Mean Corpuscular Volume 82.1 fL (80-94); Mean Platelet Vol. 9.8 fl (6.2-12.0); Monocyte# 0.51 X10^3/uL; Monocyte% 5.9 % (0-10); NRBC Flagged by Analyzer 0 % (0-5); Neutrophil # 6.73 X10^3/uL (2.7-7.7); Platelet Count 244 K/mm3 (150-450); RBC Distribution Width CV 12.8 % (11.6-14.6); RBC Distribution Width SD 38.4 fl (35.1-43.9); Red Blood Count 5.14 M/mm3 (4.6-6.2); White Blood Count 8.6 K/mm3 (4.4-11.0)
[2024-09-10] MEDS: Aspirin 81 MG TAB.CHEW 324 MG PO (20:10)
[2024-09-10 20:25] LABS: Troponin T High Sensitivity 7 ng/L (<=22)
[2024-09-10 20:29] LABS: Anion Gap 11 (5-15); BUN 15 mg/dL (4-19); BUN/Creat Ratio 13.6 RATIO (10-20); Calcium,Total 9.6 mg/dL (7.6-11.0); Carbon Dioxide 23.3 mmol/L (21.0-32.0); Chloride 104 mmol/L (98-108); Creatinine, Serum 1.13 mg/dL (0.70-1.20); EST Glomerular Filtration Rate 79 (>60); Glucose 113 mg/dL (70-99); Sodium Level 138 mmol/L (133-145)
[2024-09-10 21:27] VITALS: BP 139/89; PULSE 84; RESP 18; TEMP 36.7; O2SAT 97
== END 2024-09-10 21:28 | disposition home or self-care (01) ==
PROVIDERS: Emergency Provider Emergency Medicine; PCP Family Medicine; Visit Provider Emergency Medicine
DX: R07.9 Chest pain, unspecified (principal); R03.0 Elevated blood-pressure reading, without diagnosis of hypertension; F41.9 Anxiety disorder, unspecified; Z87.891 Personal history of nicotine dependence; Z56.4 Discord with boss and workmates
CPT/HCPCS: 71045; 80048; 84484; 85025; 93005; 99284; A4216